=== PATIENT | male | born 1995 | race African-American/Black ===

== ENCOUNTER 2017-10-08 20:49 | Inpatient (IN) | payer OTHER ==
[~2017-10-08] VITALS: Ht 200.7 cm; Wt 202.3 kg
[2017-10-08] MEDS ORDERED: IV NORMAL SALINE 1000 ML BAG IV ONE (21:45)
[2017-10-08] MEDS ORDERED: ALBUTEROL SULFATE 2.5 MG/3 ML NEBU NEB ONE (21:45)
[2017-10-08] MEDS ORDERED: ONDANSETRON 4 MG/2 ML VIAL IV ONE ×2 (21:45→22:00)
--- NOTE | 2017-10-08 21:55 | NUR ---
Called [facility] ) per request and spoke with Oneyda. Requested information provided via telephone, facesheet and ekg faxed to ([phone] ) as requested by Oneyda.
[2017-10-08] MEDS ORDERED: NITROGLYCERIN 0.4 MG/TAB BOTTLE SL ONE ×2 (22:00→22:14)
[2017-10-08] MEDS ORDERED: ASPIRIN 325 MG TABLET PO ONE (22:00)
[2017-10-08] MEDS ORDERED: ALBUTEROL SULFATE 2.5 MG/3 ML NEBU ONE (22:10)
[2017-10-08] MEDS ORDERED: ASPIRIN 325 MG TABLET ONE (22:14)
[2017-10-08] MEDS ORDERED: LORAZEPAM 2 MG/1 ML VIAL IV ONE (22:15)
[2017-10-08 22:20] LABS: BASOPHILS # (AUTO) 0.1 K/uL (0.0-8.0); BASOPHILS % (AUTO) 0.6 % (0.0-2.0); EOSINOPHILS # (AUTO) 0.1 K/uL (0.0-0.7); EOSINOPHILS % (AUTO) 0.5 % (0.0-7.0); HEMATOCRIT 45.5 % (36.7-47.1); HEMOGLOBIN 15.4 g/dL (12.5-16.3); LYMPHOCYTES # (AUTO) 0.8 K/uL (20.0-40.0); LYMPHOCYTES % (AUTO) 7.7 % (20.5-51.5); MEAN CORPUSCULAR HEMOGLOBIN 27.2 uug (23.8-33.4); MEAN CORPUSCULAR HGB CONC 34 g/dL (32.5-36.3); MEAN CORPUSCULAR VOLUME 80.6 fL (73.0-96.2); MONOCYTES # (AUTO) 0.5 K/uL (2.0-10.0); MONOCYTES % (AUTO) 4.9 % (0.0-11.0); NEUTROPHILS # (AUTO) 9.4 K/uL (1.8-8.9); NEUTROPHILS % (AUTO) 86.3 % (38.5-71.5); PLATELET COUNT (AUTO) 296 K/uL (152-348); RED BLOOD CELL COUNT(AUTO) 5.65 MIL/uL (4.06-5.63); WHITE BLOOD COUNT (AUTO) 10.9 K/uL (3.6-10.2)
[2017-10-08] MEDS ORDERED: ONDANSETRON 4 MG/2 ML VIAL ONE ×2 (22:27→22:35)
[2017-10-08 22:31] LABS: CREATININE 1.2 mg/dL (0.6-1.3); POTASSIUM 3.8 mmol/L (3.5-5.1)
[2017-10-08] MEDS ORDERED: LORAZEPAM 2 MG/1 ML VIAL ONE (22:36)
[2017-10-08 22:43] LABS: BILIRUBIN,DIRECT 0.2 mg/dL (0.0-0.2); BILIRUBIN,TOTAL 1.3 mg/dL (0.2-1.0); TOTAL PROTEIN, SERUM 8.4 g/dL (6.4-8.2)
--- NOTE | 2017-10-08 23:30 | NUR ---
Urine sample collected, sent to lab.
[2017-10-08 23:43] LABS: *BILIRUBIN,URIN NEGATIVE (NEGATIVE); *BLOOD, URINE NEGATIVE (NEGATIVE); *CLARITY,URINE SLIGHTLY CLOUDY (CLEAR); *COLOR,URINE YELLOW (YELLOW); *KETONES,URINE NEGATIVE (NEGATIVE); *PROTEIN,URINE 1+ (NEGATIVE); *UROBILINOGEN,URINE 0.2 E.U./dl (NORMAL); LEUKOCYTE ESTERASE ,URINE TRACE (NEGATIVE); NITRITE, URINE NEGATIVE (NEGATIVE); PH,URINE 7.5 (5.0-8.0); UGLUCOSE NEGATIVE (NEGATIVE)
[2017-10-08 23:57] LABS: BACTERIA,URINE FEW /HPF (NONE SEEN); SQUAMOUS EPITHELIAL CELL,UR MODERATE /HPF (NONE SEEN); WBC,URINE 20-50 /HPF (0-3)
[2017-10-09] MEDS ORDERED: PANTOPRAZOLE SODIUM 40 MG VIAL IV ONE
[2017-10-09] MEDS ORDERED: IV NORMAL SALINE 1000 ML BAG IV ONE
[2017-10-09] MEDS ORDERED: ONDANSETRON 4 MG/2 ML VIAL IV ONE
[2017-10-09] MEDS ORDERED: ONDANSETRON 4 MG/2 ML VIAL ONE ×2 (00:10→03:50)
[2017-10-09] MEDS ORDERED: PANTOPRAZOLE SODIUM 40 MG VIAL ONE (00:10)
[2017-10-09] MEDS ORDERED: CEFTRIAXONE 1 G in IV DEXTROSE 5% 50 ML IV ONE (00:15)
[2017-10-09] MEDS ORDERED: CEFTRIAXONE 1 G VIAL ONE (00:42)
--- NOTE | 2017-10-09 01:45 | NUR ---
Passed report to [facility].
[2017-10-09] MEDS ORDERED: IV NS 1000 ML 1,000 ML IV PRN (01:48)
[2017-10-09] MEDS ORDERED: MAGNESIUM HYDROXIDE 30 ML LIQUID UDC PO PRN (02:00)
[2017-10-09] MEDS ORDERED: Z GUARD REMEDY PASTE 57 GM TUBE TOP PRN (02:00)
[2017-10-09] MEDS ORDERED: ACETAMINOPHEN 325 MG TABLET PO PRN (02:00)
[2017-10-09] MEDS ORDERED: LORAZEPAM 2 MG/1 ML VIAL IV PRN (02:00)
[2017-10-09] MEDS ORDERED: CEFTRIAXONE 1 G in IV DEXTROSE 5% 50 ML IV SCH (02:00)
[2017-10-09] MEDS ORDERED: HYDROCODONE/APAP 5-325MG TABLET PO PRN (02:00)
[2017-10-09] MEDS ORDERED: ONDANSETRON 4 MG/2 ML VIAL IV PRN (02:00)
[2017-10-09 02:15] VITALS: BP 116/58
--- NOTE | 2017-10-09 02:15 | NUR ---
nsg: pt received a/o x 4 fr er with dx of chest pain and uti. v/s stable. still c/o of midsternum chest pain, 01/17. tele SR. denies n/v. cont to monitor.
--- NOTE | 2017-10-09 02:30 | NUR ---
nsg: rocephine given in er at 0030.
--- NOTE | 2017-10-09 03:30 | NUR ---
nsg: pt c/o pain on left upper arm, above the iv site. pt stated feels heavy. no signs of redness, infiltration, edema noted. pt request ivf rate to be decrease. will cont to monitor.
[2017-10-09 04:00] VITALS: BP 112/52
--- NOTE | 2017-10-09 05:55 | NUR ---
NSG: PT DENIES CP. NO ACUTE DISTRESS NOTED. TELE, SR. CONT TO MONITOR.
[2017-10-09] MEDS ORDERED: ASPIRIN 81 MG TAB.CHEW PO SCH (09:00)
[2017-10-09 11:35] VITALS: BP 117/62
[2017-10-09] MEDS ORDERED: CEPH-570 PO (15:04)
--- NOTE | 2017-10-09 15:40 | NUR ---
Discharge instructions given to patient. Pt verbalized understanding. IV d/c. E - rx sent to pt's preferred pharmacy at [facility]. Pt is to f/u with PMD within 1 week. Pt denies any c/o pain.
[2017-10-10] MEDS ORDERED: CEFTRIAXONE 1 G in IV NORMAL SALINE 50 ML IV SCH (00:30)
== END 2017-10-09 15:35 | disposition home or self-care (01) | DRG 207 ==
LOC: ER 20:50 → TELE 10-09 01:57
PROVIDERS: ADMIT Internal Medicine; ATTEND Internal Medicine
DX: I51.89 Other ill-defined heart diseases (principal); E87.2 Acidosis; Z68.43 Body mass index [BMI] 50.0-59.9, adult; E66.01 Morbid (severe) obesity due to excess calories; J45.909 Unspecified asthma, uncomplicated; F41.9 Anxiety disorder, unspecified; E03.9 Hypothyroidism, unspecified; E86.0 Dehydration; N39.0 Urinary tract infection, site not specified; Z71.3 Dietary counseling and surveillance; I10 Essential (primary) hypertension
CPT/HCPCS: 36415; 70030-TC; 71045; 83605; 84443; 85025; 85730; 87040; 87086; 87400; 93005; A4663; C9113; J0696; J2060; J2405; J3490; J7030; J7060

== ENCOUNTER 2017-12-06 02:12 | Emergency (ER) | payer OTHER ==
[~2017-12-06] VITALS: Ht 200.7 cm; Wt 170.1 kg
[~2017-12-06 02:12] MED LIST: CEPH-570 PO
[2017-12-06] MEDS ORDERED: IBUPROFEN 800 MG TABLET PO ONE (03:30)
[2017-12-06] MEDS ORDERED: IBUPROFEN 800 MG TABLET ONE (03:43)
--- NOTE | 2017-12-06 04:36 | NUR ---
Patient discharged to home in stable conditon. Written and verbal after care instructions given. Patient verbalizes understanding of instructions. Patient reported reduced pain upon discharge. Patient able to ambulate unassisted with steady gait. Patient left with all personal belonging.
[2017-12-06 04:39] VITALS: BP 142/82
== END 2017-12-06 04:36 | disposition home or self-care (01) ==
LOC: ER 02:18
DX: S52.121A Displaced fracture of head of right radius, initial encounter for closed fracture (principal); J45.909 Unspecified asthma, uncomplicated; Z90.49 Acquired absence of other specified parts of digestive tract; Z79.2 Long term (current) use of antibiotics; W18.30XA Fall on same level, unspecified, initial encounter; Y93.89 Activity, other specified; Y92.89 Other specified places as the place of occurrence of the external cause; Y99.8 Other external cause status
CPT/HCPCS: 73070; A4663

== ENCOUNTER 2018-05-01 19:50 | Emergency (ER) | payer OTHER ==
[~2018-05-01] VITALS: Ht 200.7 cm; Wt 136.1 kg
[2018-05-01] MEDS ORDERED: FLUORESCEIN SODIUM 1 MG STRIP ONE (20:36)
[2018-05-01] MEDS: FLUORESCEIN SODIUM 1 MG STRIP OP ONE (20:36)
[2018-05-01] MEDS: TETRACAINE HCL 0.5% OPHT DROP 2 ML BOTTLE OP ONE (20:37)
[2018-05-01] MEDS ORDERED: TETRACAINE HCL 0.5% OPHT DROP 2 ML BOTTLE ONE (20:37)
--- NOTE | 2018-05-01 20:52 | NUR ---
Patient discharged to home in stable conditon. Written and verbal after care instructions given. Patient verbalizes understanding of instructions. Pt ambulated out of ER in steady gait accompanied by friend. All belongings with pt.
[2018-05-01 20:53] VITALS: BP 158/94
== END 2018-05-01 20:53 | disposition home or self-care (01) ==
LOC: ER 19:52
DX: H16.102 Unspecified superficial keratitis, left eye (principal); J45.909 Unspecified asthma, uncomplicated; Z90.49 Acquired absence of other specified parts of digestive tract
CPT/HCPCS: A4663